=== PATIENT | female | born 1950 | race Caucasian/White ===

== ENCOUNTER 2017-08-18 13:58 | Day surgery (SDC) | payer MEDICARE, OTHER ==
[~2017-08-18] VITALS: Ht 167.6 cm; Wt 106.7 kg
[~2017-08-18 13:58] MED LIST: TIROSINT150 MCG
== END 2017-08-18 15:42 | disposition home or self-care (01) ==
LOC: ORSCSDS 13:58
PROVIDERS: Surgery
PROC: 0DJD8ZZ Inspection of Lower Intestinal Tract, Via Natural or Artificial Opening Endoscopic (ICD-10-PCS; principal; 2017-08-18 15:30)
DX: Z12.11 Encounter for screening for malignant neoplasm of colon (principal); E03.9 Hypothyroidism, unspecified; E66.01 Morbid (severe) obesity due to excess calories; Z68.38 Body mass index [BMI] 38.0-38.9, adult; Z79.899 Other long term (current) drug therapy
CPT/HCPCS: J7120

== ENCOUNTER 2022-10-30 07:50 | Day surgery (SDC) | payer MEDICARE, OTHER ==
[~2022-10-30] VITALS: Ht 167.6 cm; Wt 104.8 kg
--- NOTE | 2022-10-30 08:12 | NUR ---
10/30/22 0812 NIXON IBARRA AT 0810 PLEIAINET AT 0812
== END 2022-10-30 09:29 | disposition home or self-care (01) ==
LOC: ORSCSDS 07:50
PROVIDERS: Ophthalmology
PROC: 08DJ3ZZ Extraction of Right Lens, Percutaneous Approach (ICD-10-PCS; principal; 2022-10-30 09:00)
DX: H25.11 Age-related nuclear cataract, right eye (principal); E03.9 Hypothyroidism, unspecified; M85.80 Other specified disorders of bone density and structure, unspecified site; Z79.899 Other long term (current) drug therapy
CPT/HCPCS: J2001; J2250; J3010; J3301; J7040; V2632

== ENCOUNTER 2022-11-20 06:07 | Day surgery (SDC) | payer MEDICARE, OTHER ==
[~2022-11-20] VITALS: Ht 167.6 cm; Wt 106.5 kg
--- NOTE | 2022-11-20 06:23 | NUR ---
11/20/22 0623 Marybel Patel AT 0621 PLEDGET AT 0623
--- NOTE | 2022-11-20 07:41 | NUR ---
11/20/22 0741 Brigida Dupont ALLERGY. NO VANCO PER DR AVENDANO. SEE ORDERS.
[2022-11-20 08:14] VITALS: BP 106/60
== END 2022-11-20 08:16 | disposition home or self-care (01) ==
LOC: ORSCSDS 06:07
PROVIDERS: Ophthalmology
PROC: 08RK3JZ Replacement of Left Lens with Synthetic Substitute, Percutaneous Approach (ICD-10-PCS; principal; 2022-11-20 07:30)
DX: H25.12 Age-related nuclear cataract, left eye (principal); E03.9 Hypothyroidism, unspecified; Z79.899 Other long term (current) drug therapy
CPT/HCPCS: J2001; J2250; J3010; J3301; J7040; V2632

== ENCOUNTER → 2023-05-20 | Outpatient (CLI) | payer MEDICARE, OTHER | LOC: LAB 13:44 → LAB SHORT 13:44 | DX: B35.1 Tinea unguium (principal) | CPT/HCPCS: 87102 ==